=== PATIENT | female | born 1960 | race American Indian/Alaskan Native ===

== ENCOUNTER 2024-02-20 10:30 | Outpatient (CLI) | payer MEDICAID ==
[~2024-02-20 10:30] MED LIST: METH4TAB3 PO; METH500T PO
== END 2024-02-20 23:59 | disposition home or self-care (01) ==
LOC: MRI 10:30
PROVIDERS: ATTEND Nurse Practitioner Family
DX: M19.012 Primary osteoarthritis, left shoulder (principal); M25.512 Pain in left shoulder; M75.102 Unspecified rotator cuff tear or rupture of left shoulder, not specified as traumatic; M25.712 Osteophyte, left shoulder; M62.50 Muscle wasting and atrophy, not elsewhere classified, unspecified site; M75.52 Bursitis of left shoulder
CPT/HCPCS: 73221